=== PATIENT | female | born 1925 | race Caucasian/White ===

== ENCOUNTER → 2016-10-07 | Outpatient (CLI) | payer MEDICARE ==
[~2016-10-07] MED LIST: /ESOM40CA; /GLIM4TA; /GLIM4TA OR; /PANT40TA; /WARF25TA; ACET65TA; ACTO30TA; ASPI81TA45 OR; ATOR40TA PO; CENT1TAB PO; CENTRUM SILVER; CHONDROITIN; DARV100T; FLON0.05; FLON0.054; FURO40TA2 PO; GAS-80CH; GLIM4TAB PO; GLUC500T; GLUCOSAMIDE; HYDR-3713 PO; JANU50TA4 PO; KEFL500C; LIPI20TA; LISI20TA PO; LOPR50TA OR; MELOPOW; MELOPOW XX; METO25TA74 PO; MILKSUS; MIRALAX; MIRALEX; OMEP20CA3 PO; PERC5TAB8; PRESCAP6 PO; PRIN20TA3; QUES4POW PO; SENN8.6T14; SENN8.6T5; SERT50TA PO; SIMV80TA; SIMV80TA OR; TIGA100I; TOPR50TA; TRAM50TA2 OR; TUMS500C; TYLE325T5 PO; VITA100072 PO; VITA25003; VITAMIN B-12; WARF-18 PO; ZEST20TA4; ZOLO100T; ZOLO100T OR; ZOLO50TA; [UNRECOGNIZED DRUG - OTHER]; [UNRECOGNIZED DRUG - OTHER]; nasonex
[2016-10-07 19:41] LABS: MEAN CORPUSCULAR HEMOGLOBIN 29.1 pg (27.0-33.0); MEAN CORPUSCULAR VOLUME 94.1 fl (80.0-96.0); RED CELL DISTRIBUTION WIDTH 14.3 % (11.5-14.5); WHITE BLOOD COUNT 4.3 K/mm3 (4.0-10.0)
[2016-10-07 19:46] LABS: ALBUMIN 3.5 GM/DL (3.2-5.2); ALBUMIN/GLOBULIN RATIO 0.92 (1.00-1.93); BILIRUBIN,TOTAL 0.3 MG/DL (0.2-1.0); CALCIUM LEVEL 8.5 MG/DL (8.8-10.2); CREATININE FOR GFR 1.97 MG/DL (0.55-1.02); GLOMERULAR FILTRATION RATE 25.4 (>32); MAGNESIUM LEVEL 1.6 MG/DL (1.8-2.4); POTASSIUM SERUM 5.1 MEQ/L (3.5-5.1); TOTAL PROTEIN 7.3 GM/DL (6.4-8.2)
== END ==
LOC: M WUC 16:13
PROVIDERS: ATTEND Internal Medicine
DX: N18.9 Chronic kidney disease, unspecified (principal); E11.8 Type 2 diabetes mellitus with unspecified complications; E78.00 Pure hypercholesterolemia, unspecified; I10 Essential (primary) hypertension